=== PATIENT | male | born 1995 | race Two or more races ===

== ENCOUNTER 2020-01-24 16:12 | Emergency (ER) | payer MEDICAID ==
[~2020-01-24] VITALS: Ht 167.6 cm; Wt 67.0 kg
[2020-01-24 16:40] VITALS: BP 145/80
[2020-01-24] MEDS ORDERED: CEFTRIAXONE SODIUM 250 MG/VIAL IM ONE (18:00)
[2020-01-24] MEDS ORDERED: AZITHROMYCIN 500 MG TABLET PO ONE (18:00)
[2020-01-24 18:46] LABS: CLARITY URINE CLOUDY (CLEAR); COLOR URINE YELLOW (YELLOW); KETONES URINE TRACE (NEGATIVE); LEUKOCYTE ESTERASE URINE 3+ (NEGATIVE); NITRITE URINE NEGATIVE (NEGATIVE); OCCULT BLOOD URINE TRACE (NEGATIVE); PROTEIN URINE 1+ (NEGATIVE); SPECIFIC GRAVITY URINE 1.032 (1.005-1.030)
[2020-01-27 06:10] LABS: NEISSERIA GONORRHOEAE NAA Positive (Negative)
== END 2020-01-24 18:40 | disposition home or self-care (01) ==
LOC: ER 16:12
DX: N34.2 Other urethritis (principal)
CPT/HCPCS: 81003; 87086; 87491; 87591; 96372; 99283; J0696; Z7610

== ENCOUNTER 2021-05-30 09:23 | Emergency (ER) | payer MEDICAID ==
[~2021-05-30] VITALS: Ht 167.6 cm; Wt 68.0 kg
[2021-05-30 09:33] VITALS: BP 139/89
[2021-05-30] MEDS ORDERED: CEFTRIAXONE SODIUM 500 MG/VIAL IM ONE (11:00)
[2021-05-30] MEDS ORDERED: DOXY100C5 MT (11:05)
[2021-06-02 04:09] LABS: NEISSERIA GONORRHOEAE NAA Positive (Negative)
== END 2021-05-30 11:15 | disposition home or self-care (01) ==
LOC: ER 10:16
DX: Z20.2 Contact with and (suspected) exposure to infections with a predominantly sexual mode of transmission (principal)
CPT/HCPCS: 87491; 87591; 96372; 99283; J0696

== ENCOUNTER 2023-06-05 23:44 | Emergency (ER) | payer SELFPAY ==
[~2023-06-05] VITALS: Ht 167.6 cm; Wt 66.0 kg
[~2023-06-05 23:44] MED LIST: DOXY100C5 MT
[2023-06-06 00:26] VITALS: BP 126/81; PULSE 87; RESP 18; TEMP 97.6; O2SAT 99
== END 2023-06-06 07:58 | disposition left against medical advice (07) ==
LOC: ER 23:44
DX: R05.9 Cough, unspecified (principal); Z53.21 Procedure and treatment not carried out due to patient leaving prior to being seen by health care provider
CPT/HCPCS: 99281

== ENCOUNTER 2023-10-21 04:01 | Emergency (ER) | payer SELFPAY ==
[~2023-10-21] VITALS: Ht 167.6 cm; Wt 64.0 kg
[2023-10-21 04:34] VITALS: O2SAT 98
[2023-10-21] MEDS ORDERED: ONDA4TAB50 PO (05:20)
[2023-10-21] MEDS ORDERED: TOPUD PO (05:20)
[2023-10-21] MEDS: ONDANSETRON HCL 4MG TABLET PO ONE (05:29)
[2023-10-21] MEDS: ACETAMINOPHEN 325MG TABLET PO ONE (05:30)
[2023-10-21 06:00] VITALS: BP 121/65; PULSE 74; RESP 18; TEMP 98.3
== END 2023-10-21 06:00 | disposition home or self-care (01) ==
LOC: ER 04:01
DX: B34.9 Viral infection, unspecified (principal); J45.909 Unspecified asthma, uncomplicated; Z20.822 Contact with and (suspected) exposure to COVID-19
CPT/HCPCS: 99283; 87426; Q0162

== ENCOUNTER 2024-03-24 18:32 | Emergency (ER) | payer SELFPAY ==
[~2024-03-24 18:32] MED LIST changes: +ONDA4TAB50 PO; +TOPUD PO
[2024-03-24] MEDS ORDERED: CETI1TAB MT (19:38)
[2024-03-24] MEDS ORDERED: TUSSL MT (19:38)
[2024-03-24] MEDS ORDERED: FLUT9.9S BOTHNSTRLS (19:38)
[2024-03-24] MEDS ORDERED: NAPR-679 MT (19:38)
== END 2024-03-24 19:49 | disposition home or self-care (01) ==
LOC: ER 18:32
DX: B34.9 Viral infection, unspecified (principal); J45.909 Unspecified asthma, uncomplicated; Z79.1 Long term (current) use of non-steroidal anti-inflammatories (NSAID); Z79.899 Other long term (current) drug therapy
CPT/HCPCS: 99282

== ENCOUNTER 2025-03-20 13:42 | Emergency (ER) | payer MEDICAID ==
[~2025-03-20] VITALS: Ht 167.6 cm; Wt 62.0 kg
[~2025-03-20 13:42] MED LIST changes: +CETI1TAB MT; +FLUT9.9S BOTHNSTRLS; +NAPR-679 MT; +TUSSL MT
[2025-03-20 13:56] VITALS: TEMP 36.8; O2SAT 98
[2025-03-20] MEDS: CEFTRIAXONE SODIUM 500MG VIAL IM ONE (15:42)
[2025-03-20 16:01] LABS: CLARITY URINE CLEAR (CLEAR); COLOR URINE YELLOW (YELLOW); GLUCOSE URINE NEGATIVE (NEGATIVE); KETONES URINE NEGATIVE (NEGATIVE); LEUKOCYTE ESTERASE URINE 2+ (NEGATIVE); NITRITE URINE NEGATIVE (NEGATIVE); OCCULT BLOOD URINE NEGATIVE (NEGATIVE); PH URINE 7.0 (4.5-8.0); PROTEIN URINE NEGATIVE (NEGATIVE); SPECIFIC GRAVITY URINE 1.010 (1.005-1.030); UROBILINOGEN URINE 0.2 E.U./dL (0.2-1.0)
[2025-03-20 16:25] LABS: BACTERIA URINE 1+; RBC URINE 0-2 /hpf (0-2); SQUAMOUS EPITHELIAL CELL URINE FEW /lpf (RARE/1+)
[2025-03-20] MEDS ORDERED: CEFP200T13 MT (16:49)
[2025-03-20] MEDS ORDERED: DOXY100T2 MT (16:51)
[2025-03-20 17:31] VITALS: BP 118/87; PULSE 72; RESP 16; O2SAT 100
[2025-03-22 04:10] LABS: HSV TYPE 2 SPECIFIC AB IGG Reactive (Non Reactive)
== END 2025-03-20 17:45 | disposition home or self-care (01) ==
LOC: ER 13:42
DX: R30.9 Painful micturition, unspecified (principal); J45.909 Unspecified asthma, uncomplicated; Z79.1 Long term (current) use of non-steroidal anti-inflammatories (NSAID)
CPT/HCPCS: 99283; 86592; 86695; 86696; 81003; 36415; 96372; J0696